=== PATIENT | male | born 1970 | race Caucasian/White ===

== ENCOUNTER 2016-12-08 16:31 | Observation (INO) | payer OTHER ==
--- NOTE | ~2016-12-08 | CN ---
Consultation Report [facility] [address] [place]. [address] NAME: TIESHA CASANOVA : 68 STATUS : ADM Kirk PAT#: [id number] AGE: 46 ADM/REG DATE : 12/08/16 MR#: [id number] REPORT SERV DATE: 12/09/16 DICTATED BY: DATE: REPORT STATUS : Draft TRANSCRIBED BY: MODL DATE: 12/08/16 NEUROLOGY CONSULTATION DATE OF CONSULTATION: 12/08/2016 REASON FOR CONSULT: Numbness. HPI: This is a 46-year-old male who noted numbness in the left face as well as left finger. The patient reports on Sunday the patient briefly was noted to have numbness in the left facial area in the upper lip as well as left lateral three digits on the finger tips with the symptom resolved after five minutes. The patient denies any ongoing weakness or dysarthria associated with the symptom. The patient subsequently have return of the symptom on 12/07/2016 at roughly 10 a.m. and that persisted until today. The patient reports stable unchanged symptom and reports the symptoms noticeable when the patient trying to touch something with reports of paresthesias mostly in the left upper lobe as well as left lateral three fingers. The patient denies similar symptoms in the past and denies any current weakness, denies any dysarthria, denies any diplopia, and denies any gait abnormalities. The patient denies any lower extremity symptom involvement. The patient denies any previous numbness and denies any previous weakness, denies any previous vision difficulties. The patient denies any current stress and denies any recent illness, fever, chills, nausea, vomiting, chest pain, or shortness of breath. He denies any new medication recently and denies any aspirin intake at home. PAST MEDICAL HISTORY: Significant for gastroesophageal reflux disease, as well as hypertension which the patient is on medications for. FAMILY HISTORY: The patient's family history is significant for cardiac arrhythmia. The patient reports alcohol as well as tobacco usage, with the patient reports the weekend alcohol consumption. He shares about a 12-pack with his on the weekend. Otherwise, reports ongoing tobacco usage, but denies illicit drug usage. REVIEW OF SYSTEMS: Negative except for those mentioned in the HPI. The patient reports allergies to penicillin and at home takes amlodipine as well as ranitidine for hypertension as well as gastroesophageal reflux disease. Review of systems negative except for those mentioned in the HPI. PHYSICAL EXAMINATION: VITAL SIGNS: At the time of evaluation, the patient was noted to have T-max 98.8, heart rate of 82 to 96, respirations of 18, and blood pressure of 148 to 176 over 78 to 101. GENERAL: The patient is a well developed, well nourished, in no acute distress. CARDIOVASCULAR: Regular rate and rhythm. No carotid bruits were otherwise auscultated. PULMONARY: Clear to auscultation bilaterally. Consultation Report [place] [id number] [facility] [place]. [address] NAME: TIESHA CASANOVA : 68 STATUS : ADM Kirk PAT#: [id number] AGE: 46 ADM/REG DATE : 12/08/16 MR#: [id number] REPORT SERV DATE: 12/09/16 DICTATED BY: DATE: REPORT STATUS : Draft TRANSCRIBED BY: MODReynaldo DATE: 12/08/16 NEUROLOGICAL EXAMINATION: Generally, the patient is alert and oriented to person, place, year, and month and follow simple and two-step commands. No dysarthria. No aphasia. Intact registration and recall. Cranial nerves II through XII, pupils equal, round, and reactive to light. Horizontal eye movement was noted to be intact with intact peripheral vision. Symmetrical facial expression. Sensation midline. Tongue normal. Normal palatal movement. Normal hearing. The patient was noted to have 5/5 bilateral upper and lower extremity strength. No pronator drift was otherwise noted. Reports a symmetrical sensation bilaterally. No sensory neglect. The patient demonstrated deep tendon reflex 1+ throughout. Downgoing toe and bilateral plantar reflexes and normal jglcod-hx-vykm examination without ataxia. Normal stable gait and normal station. LABORATORY STUDIES: Demonstrated sodium of 140, potassium is 3.9, chloride 105, bicarb of 30, BUN of 12, creatinine of 1.25, glucose 147, calcium of 9.2, magnesium of 2.2. White blood cell count of 13.1, hemoglobin of 17.1, hematocrit of 49.3, and platelet count of 247. CT scan of the brain otherwise demonstrated no acute process. IMPRESSION: 1. Left upper extremity and facial numbness with paresthesia. Symptom was noted since the 12/07/2016 at 10 a.m. Current NIH stroke scale is 0. The patient was otherwise noted to have no focal weakness and is able to ambulate without difficulties. The patient denies any previous similar symptoms in the past and denies any previous vision disturbances. We will start the patient on aspirin and Plavix and perform stroke evaluation. 2. Tobacco abuse. Counseled the patient regarding tobacco cessation. RECOMMENDATIONS: 1. MRI of the brain without contrast. 2. Echocardiogram. 3. Carotid Doppler study. 4. Fasting lipid panel and hemoglobin A1c. 5. Aspirin 325 mg p.o. daily. 6. Atorvastatin 80 mg p.o. at bedtime. 7. Sedimentation rate and CRP. 8. PT and OT were not ordered secondary to lack of motor symptoms. [facility]/SMILEY Du Lomas MD / [id number] Consultation Report [address] [address] NAME: TIESHA CASANOVA Say : 68 STATUS : ADM Kirk PAT#: [id number] AGE: 46 ADM/REG DATE : 12/08/16 MR#: [id number] REPORT SERV DATE: 12/09/16 DICTATED BY: DATE: REPORT STATUS : Draft TRANSCRIBED BY: SMILEY DATE: 12/08/16 CC: Jeff Garcia Jr, MD
--- NOTE | ~2016-12-08 | HP ---
History And Physical [place] [id number] [facility] [place]. [address] NAME: TIESHA CASANOVA : 68 STATUS : ADM Kirk PAT#: [id number] AGE: 46 ADM/REG DATE : 12/08/16 MR#: [id number] REPORT SERV DATE: 12/09/16 DICTATED BY: PIPE MANTILLA DATE: 12/08/16 REPORT STATUS : Draft TRANSCRIBED BY: MODL DATE: 12/08/16 DATE OF ADMISSION: 12/08/2016 REASON FOR ADMISSION: TIA with neurologic residual. HISTORY: This is a 46-year-old white male, who got up early from [employer] job and went to the golf course at 3 p.m. Went to golf club and had numbness in the thumb, index, and middle finger of his left hand and numbness in his lip and paranasal face. He got better as he played golf and he kept on going. He had no limping or weakness in his left lower extremity. No change in mentation. He does have a history of hypertension. He does not take his medication regularly. He saw Dr. Diane Lawson in [place] and was given amlodipine 5 mg p.o. daily, but he does not take that regularly. He was also given ranitidine 300 mg daily for GERD. He did well until he went to his dentist and as he got out of the truck he had similar distribution numbness left hand and left face. He went on into the dentist and had his dental work done. He did have Novocain for the dental work and he has had numbness remaining in his left mouth and face and now just limited to his left thumb. He does feel pressure. He does not feel sharp. When he does press with left thumb, he does feel pins and needle sensation in the distal left thumb. He has been followed in the past by Dr. Mary Moser when she had the office in [place]. He has known high cholesterol but does not take any medication, and he is also noncompliant with his blood pressure medication. PAST MEDICAL HISTORY: He has been on amlodipine 5 mg p.o. daily, ranitidine 300 mg p.o. daily in the past but does not always take them, however. He received a CT scan of his brain which showed mild enlarged CSF containing spaces and mild supratentorial deep white matter changes. Chest x-ray was negative. Dr. Craft came him in the emergency room, and asked me to take a look at him after she had spoken to Dr. Du Lomas who thought this might be an early MS or vascular TIA. Our plan would be that he would be admitted to observation, have ultrasound of his carotid artery, if negative start him on aspirin and to be discharged home. SOCIAL HISTORY: He smokes about a pack of cigarettes a day. Works at the [employer]. He grew up in [place], [place] and lives in [place]. He has been , now lives with second spouse. Has 2 children, alive and well. He does not take any alcohol or drugs. FAMILY HISTORY: His mother is alive and well. Father has elevated heart rate. He has 1 brother and 1 sister, both alive and well. History And Physical [address] [address] NAME: TIESHA CASANOVA : 68 STATUS : ADM Kirk PAT#: [id number] AGE: 46 ADM/REG DATE : 12/08/16 MR#: [id number] REPORT SERV DATE: 12/09/16 DICTATED BY: PIPE AMNTILLA DATE: 12/08/16 REPORT STATUS : Draft TRANSCRIBED BY: SMILEY DATE: 12/08/16 REVIEW OF SYSTEMS: He denies any headache or eye pain. No double vision. No unilateral weakness. He did have only the numbness in the left thumb, index, and middle finger, and around the left upper lip, left so in the lower lip, now in the chin. He has had no nausea or vomiting. No diarrhea. No decreased hearing. No ringing in the ears. No melena, hematemesis, fits, seizures, convulsions, unilateral weakness. No palpitations. He does have a history of hyperlipidemia and is on no medications for this. He says the high cholesterol has come and gone in the past. He has had no abdominal pain. No hematuria. No hemoptysis. No swelling in lower extremities. No arthritis. No fits, seizures, or convulsions. The remainder of the review of systems is negative. PHYSICAL EXAMINATION: VITAL SIGNS: His blood pressure is 176/110 with a heart rate of 70, respiratory rate 18, afebrile. HEENT: EOMI. Sclerae clear. Conjunctivae pink. HEART: Regular S1, S2 without murmur, gallop, or click. NECK: No bruit. No thyroid. No JVD. CHEST: Clear to A and P. ABDOMEN: Soft and nontender. Bowel sounds positive. No HSM. EXTREMITIES: Have no edema. Distal pulses are intact, dorsalis pedis posterior tibial. NEUROLOGIC: The DTRs are equal and symmetric in the knees and ankles. 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 There is no interosseous wasting. Mndzpy-pa-sfgn is intact. Rapid alternating movements are intact. There is no increased tone. No tremor. Sensory is intact except through the pad of the left thumb. LYMPHATICS: There is no adenopathy palpable. SKIN: Without rash, ecchymosis, or bruising. LABORATORY DATA: CT scan of brain showed mild enlarged CSF containing spaces and mild supratentorial deep white matter disease. Both advanced with the patient's age. There is mild ethmoid sinus mucosal disease. Chest x-ray negative. Sodium 140, potassium 3.9, chloride 105, CO2 is 30, BUN 12, creatinine 1.25, glucose is 147. Troponin less than 0.02. His hemoglobin was 17, hematocrit 49.3, white count 13.1, platelet count 247. INR 1.0. ASSESSMENT: 1. Possible TIA with very limited neurologic deficit. I do not believe this is just cervical radicular pain with cervical radicular numbness in the thumb, index, and middle finger, but also the left upper lip and lip to nasal numbness. Because of the recurrence, I am going to check an ultrasound of carotid arteries and start aspirin 325 p.o. daily. We will check a lipid panel in the morning before starting any antilipidemic medication. 2. Hypertension. His blood pressure may be elevated and he has not taking the medication. We will start back on amlodipine 5 mg p.o. daily initially though he may need additional medication to control the blood pressure in a reasonable range in the 140s once this is under control. 3. History of dental surgery may be obscuring some of the signs and symptoms with the History And Physical [address] [place]. [address] NAME: TIESHA CASANOVA : 68 STATUS : ADM Kirk PAT#: [id number] AGE: 46 ADM/REG DATE : 12/08/16 MR#: [id number] REPORT SERV DATE: 12/09/16 DICTATED BY: PIPE MANTILLA DATE: 12/08/16 REPORT STATUS : Draft TRANSCRIBED BY: SMILEY DATE: 12/08/16 numbness in the left upper lip. Actually may be this is a cervical radicular numbness at the C6 level. 4. Probable hyperlipidemia. PLAN: We will check ultrasound of the carotids. Start aspirin 325 daily. Restart his amlodipine at 5 mg p.o. every day. We will check the lipid panel in the morning before starting on the hyperlipidemic medication. If the symptoms change, we will probably obtain an MRI of the brain and MRA of the posterior and anterior circulations though we may defer this to Dr. Diane Lawson or Mary Moser who he will see for primary care. [facility]/SMILEY Pipe Mantilla M.D. / [id number] CC: Dale Mason M.D.
--- NOTE | ~2016-12-08 | DS ---
Discharge Summary [facility] [address] [place]. [address] NAME: TIESHA CASANOVA : 68 STATUS : DIS Kirk PAT#: [id number] AGE: 46 ADM/REG DATE : 12/08/16 MR#: [id number] REPORT SERV DATE: 12/10/16 DICTATED BY: ZACHARY SAWANT II DATE: 12/09/16 REPORT STATUS : Draft TRANSCRIBED BY: MODL DATE: 12/09/16 ADMISSION DATE: 12/08/2016 DISCHARGE DATE: 12/09/2016 DISCHARGE DIAGNOSES: 1. 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 2. Hypertension. 3. Hypertriglyceridemia. CONSULT: Dr. Nata Lomas with Neurology. BRIEF HISTORY OF PRESENT ILLNESS: The patient is a 46-year-old male with the above history, who presented to [facility] due to left-sided facial numbness. For detailed history and physical examination, please see Dr. Marinelli's note from 12/08/2016. HOSPITAL COURSE: On admission, the patient had a CT of the head, which showed mild enlarged CSF-containing spaces and mild supratentorial white matter disease suggesting microangiopathy. Subsequent MRI of the brain showed an acute focal right thalamic infarction without hemorrhage or mass effect as well as moderate cerebral and cerebellar atrophy. Carotid Doppler was unremarkable. An echo showed a normal EF and no valvular abnormalities. Lipid panel showed cholesterol 198, HDL 35, LDL 119, triglycerides 223. Otherwise, labs were fairly unremarkable. The patient's blood pressure on 5 of Norvasc has been stable in the 120s to 130 systolic. He had not been taking Norvasc at home, which had been prescribed by his PCP and noted his pressure was occasionally in the 170s, but also has been 120s to 130s off it. Dr. Nata Lomas evaluated the patient as well, and the patient will be discharged on aspirin 81 mg p.o. daily and atorvastatin 80 mg p.o. q.h.s. in addition to his home Norvasc, which we will encourage compliance with. DISCHARGE MEDICATIONS: 1. Norvasc 5 mg p.o. daily. 2. Atorvastatin 80 mg p.o. q.h.s. 3. Aspirin 81 mg p.o. daily. 4. Ranitidine 150 mg p.o. daily. DISCHARGE INSTRUCTIONS: The patient will follow up with his primary care physician in one to two weeks. [place]/SMILEY Zachary Sawant II, MD / [id number] Discharge Summary [address] [address] NAME: TIESHA CASANOVA Say : 68 STATUS : DIS Kirk PAT#: [id number] AGE: 46 ADM/REG DATE : 12/08/16 MR#: [id number] REPORT SERV DATE: 12/10/16 DICTATED BY: ZACHARY SAWANT II DATE: 12/09/16 REPORT STATUS : Draft TRANSCRIBED BY: SMILEY DATE: 12/09/16 CC: Zachary Sawant II, MD
[2016-12-08 13:31] LABS: BASOPHILS 0.2 %; BASOPHILS ABSOLUTE 0.02 10/3/uL (0.0-0.16); EOSINOPHILS 0.9 %; EOSINOPHILS ABSOLUTE 0.12 10/3/uL (0.0-0.53); HEMOGLOBIN 17.1 g/dL (13.6-17.8); IMMATURE GRANULOCYTES 0.3 %; IMMATURE GRANULOCYTES ABSOLUTE 0.04 10/3/uL (0.0-0.11); LYMPHOCYTES 12.6 %; LYMPHOCYTES ABSOLUTE 1.64 10/3/uL (0.67-4.30); MEAN CORPUS HGB CONC 34.7 g/dL (32.0-36.0); MEAN CORPUSCULAR HEMOGLOB 29.6 pg (26.0-34.0); MEAN CORPUSCULAR VOLUME 85.3 fL (80-100); MEAN PLATELET VOLUME 9.6 fL (9.2-13.0); MONOCYTES 4.8 %; MONOCYTES ABSOLUTE 0.63 10/3/uL (0.21-1.20); NEUTROPHILS 81.2 %; PLATELET COUNT 247 10/3/uL (150-400); RBC DISTRIBUTION WIDTH 13.7 % (12.0-16.0); RED CELL COUNT 5.78 10/6/uL (4.7-6.1); WHITE BLOOD CELLS 13.1 10/3/uL (4.5-10.5)
[2016-12-08 13:32] LABS: ER CBC TAT 0 Hrs 04 MinsNP; HEMATOCRIT 49.3 % (40.0-51.0); MANUAL DIFF NO %
[2016-12-08 13:38] LABS: PARTIAL THROMBO TIME 27.5 SEC (22.5-37.2); PROTIME (NOT ORD) 12.9 SEC (12.0-14.5)
[2016-12-08 13:47] LABS: BUN (BLOOD UREA NITROGEN) 12 MG/DL (6-23); CALCIUM, SERUM 9.2 MG/DL (8.5-10.4); CHEST PAIN PROFILE TAT 0 Hrs 20 Mins; CHLORIDE, SERUM 105 MMOL/L (96-112); CO2 (CARBON DIOXIDE) 30 MMOL/L (24-34); CREATININE 1.25 MG/DL (0.70-1.30); GFR AFRICAN AMERICAN 79 ML/MIN (>=60); GFR NON AFRICAN AMERICAN 68 ML/MIN (>=60); GLUCOSE, SERUM 147 MG/DL (60-99); POTASSIUM, SERUM 3.9 MMOL/L (3.5-5.3); SODIUM, SERUM 140 MMOL/L (135-148); TROPONIN I <0.02 NG/ML (<0.05)
[~2016-12-08 16:31] MED LIST: MOBIC7.5 PO; [UNRECOGNIZED DRUG - OTHER]
[2016-12-08] MEDS ORDERED: ZANTAC300 MG PO (17:51)
[2016-12-08] MEDS ORDERED: NORV5 PO (17:51)
[2016-12-09 04:59] LABS: C-REACTIVE PROTEIN 6.9 MG/L (<8.0); CHOL/HDL RATIO(NOT ORDER) 5.7 (0-5); ULTRASENSITIVE TSH 2.32 MCIU/ML (0.358-3.740)
[2016-12-09] MEDS ORDERED: ASA5GR PO (15:58)
[2016-12-09] MEDS ORDERED: LIPITOR80 MG PO (15:58)
== END 2016-12-09 16:24 | disposition home or self-care (01) ==
LOC: ER 16:31 → CDU1 17:32 → CDU2 18:22
PROVIDERS: Emergency Medicine; Internal Medicine
DX: G45.9 Transient cerebral ischemic attack, unspecified (principal); I10 Essential (primary) hypertension; K21.9 Gastro-esophageal reflux disease without esophagitis; E78.00 Pure hypercholesterolemia, unspecified; F17.210 Nicotine dependence, cigarettes, uncomplicated; R20.0 Anesthesia of skin; E78.1 Pure hyperglyceridemia; Z79.82 Long term (current) use of aspirin
CPT/HCPCS: 70450; 70551; 71020; 80048; 80061; 82607; 83036; 83735; 84443; 84484; 85025; 85610; 85652; 85730; 86140; 93005; 93306; 93880; 99285; A9270-GY; G0378